=== PATIENT | male | born 1985 | race Two or more races ===

== ENCOUNTER 2017-04-29 11:19 | Emergency (ER) | payer SELFPAY ==
[~2017-04-29] VITALS: Ht 172.7 cm; Wt 67.0 kg
[2017-04-29 11:36] VITALS: BP 152/82
== END 2017-04-29 12:57 | disposition home or self-care (01) ==
LOC: ER 12:36
DX: M79.674 Pain in right toe(s) (principal); M79.89 Other specified soft tissue disorders
CPT/HCPCS: 99282